=== PATIENT | female | born 1955 | race Asian ===

== ENCOUNTER 2018-01-10 12:32 | Emergency (ER) | payer OTHER ==
--- NOTE | 2018-01-10 15:03 | XRAY Report ---
EXAM: CHEST RADIOGRAPHY EXAM DATE: 01/10/2018 02:42 PM. CLINICAL HISTORY: Cough cp. COMPARISON: None. TECHNIQUE: 2 views. FINDINGS: Lungs/Pleura: No focal opacities evident. No pleural effusion. No pneumothorax. Normal volumes. Mediastinum: Heart and mediastinal contours are unremarkable. Other: None. IMPRESSION: No acute cardiopulmonary abnormality. [facility] Referring Provider Line: [phone] SITE ID: [id number]
[2018-01-10] MEDS ORDERED: SIMETHICONE CHEW 80 MG TABLET PO STA (15:52)
[2018-01-10] MEDS ORDERED: OXYMETAZOLINE NASAL SPRAY NAS STA (15:54)
--- NOTE | 2018-01-10 16:01 | ED Physician Documentation ---
History of Present Illness - Stated complaint Stated Complaint: COUGH/CONGESTION - Chief complaint Chief Complaint: Cardiac - Additonal information Additional information: hx from pt 62 female several days of cough congestion R ear plugged chills made moses soup for her and now she has a lot of belching, has small BM this Am had a flu shot Review of Systems Constitutional: reports: Chills, Myalgias. 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 - Present Medications Home Medications: Ambulatory Orders Medication Instructions Recorded Confirmed Acetaminophen [Tylenol] 650 mg PO Q6H PRN 02/20/16 05/19/16 Dextromethorphan Polistirex 01/10/18 [Delsym] - Allergies Allergies/Adverse Reactions: Allergies Allergy/AdvReac Type Severity Reaction Status Date / Time ibuprofen Allergy Intermediate Itching Verified 01/10/18 12:53 naproxen Allergy Intermediate Itching Verified 01/10/18 12:53 azithromycin Allergy Rash Verified 01/10/18 12:53 guaifenesin [From Robitussin] Allergy Anxiety Verified 01/10/18 12:53 Iodine and Iodide Containing Allergy Anaphylaxis Verified 01/10/18 12:53 Produc benzonatate [Benzonatate] AdvReac Intermediate tachycardia Verified 01/10/18 12: 53 oxycodone AdvReac Intermediate Rash Verified 01/10/18 12:53 tramadol AdvReac Intermediate Emesis Verified 01/10/18 12:53 aspirin AdvReac Unknown unknown Verified 01/10/18 12:53 eggs AdvReac Intermediate Emesis Uncoded 05/19/16 00:52 - Social History Does the pt smoke?: No Smoking Status: Never smoker Does the pt drink ETOH?: No Does the pt have substance abuse?: No - Immunizations Immunizations are current?: Yes Results - Vitals Vitals: Vital Signs - 24 hr 01/10/18 01/10/18 01/10/18 12:45 13:59 16:20 Temperature 37.9 C H 98 C H 37.5 C Heart Rate 101 H 99 102 H Respiratory 19 18 20 Rate Blood Pressure 156/79 H 164/102 H 191/97 H O2 Saturation 96 95 99 Oxygen O2 Source Room air - EKG (time done) 1258 Rate: Rate (enter#) (97) Rhythm: NSR [place]: Normal Ischemia: Non specific changes Compare to prior EKG: Unchanged from prior EKG (very siimilar to prior EKG - done per protocol form triage because she has chest discomfort with her cough - low concern for ACS) - Labs Labs: Laboratory Tests 01/10/18 01/10/18 15:30 15:30 Influenza A (Rapid) Negative Influenza B (Rapid) Negative Influenza Types A,B Ag - Group A Strep Rapid Negative - Rads (name of study) CXR Radiology: See rad report (per rad no acute) PD MEDICAL DECISION MAKING - ED course ED course: pt feeling better after meds in the ER Departure - Departure Disposition: 01 Home, Self Care Clinical Impression: Viral URI with cough Condition: Good Instructions: ED Viral Syndrome Follow-Up: Nato Gray MD [Primary Care Provider] - Comments: The xray did not show pneumonia The flu and strep swabs were nagtive The EKG was not normal but was similar to mprior EKGs I think this is a viral syndrome - that does not make you less ill but means antibiotics won't help I recommend you use afrin to decongest the painful right ear and continue the delsym as needed for the cough Tylenol as needed for pain and fever Follow up with your PMD if not better by the end of the week
[2018-01-10] MEDS ORDERED: ACETAMINOPHEN 325 MG TABLET PO STA (17:26)
[2018-01-10 17:28] VITALS: BP 189/92
== END 2018-01-10 17:35 | disposition home or self-care (01) ==
LOC: ED 12:32
DX: J06.9 Acute upper respiratory infection, unspecified (principal); B97.89 Other viral agents as the cause of diseases classified elsewhere; R05 Cough; H92.01 Otalgia, right ear; I10 Essential (primary) hypertension
CPT/HCPCS: 71046; 87070; 87275; 87276; 87430; 93005; 99283; 99284; A9270

== ENCOUNTER 2018-10-03 15:17 | Emergency (ER) | payer OTHER ==
--- NOTE | 2018-10-03 16:07 | ED Physician Documentation ---
PD HPI NVD - Stated complaint Stated Complaint: NECK PX, BACK PX, DIARRHEA - Chief complaint Chief Complaint: General - History obtained from History obtained from: Patient - History of Present Illness Timing - onset: How many days ago (3) Timing - duration: Days (3) Timing - details: Gradual onset (She has been having intermittent diarrhea with a abdominal pains and cramps over the past year and episodes. She had had a couple of weeks ago and seen by her provider with prescription for Reglan and Lomotil. She states she is been having still loose stools. She has been having increased cramping and diarrhea the last 2-3 days. She is having nausea with vomiting since yesterday. Her pain is mid to lower abdomen radiating into the back. She states when she saw her provider in the clinic she did not have any imaging nor stool studies.) Associated symptoms: Abdominal pain (crampy intermittent, mostly lower abd.). No: Fever, Near syncope / syncope, Loss of appetite, Weight loss Contributing factors: No: Sick contact, Bad food, Travel, Recent antibiotics Improved by: BM. No: Eating Worsened by: Eating Similar symptoms before: No diagnosis (symptoms intermittently for a year, more the past month.) Recently seen: Clinic (had labs and given Rx for Lomotil. Patient says no imaging nor stool studies.) Review of Systems Constitutional: reports: Fatigue. denies: Fever, Chills, Myalgias Nose: denies: Rhinorrhea / runny nose, Congestion Throat: denies: Sore throat Cardiac: denies: Chest pain / pressure Respiratory: denies: Cough GI: reports: Abdominal Pain, Nausea, Diarrhea. denies: Abdominal Swelling, Vomiting, Bloody / black stool : denies: Dysuria, Frequency Skin: denies: Rash, Lesions Musculoskeletal: reports: Back pain (lower). denies: Neck pain Neurologic: reports: Generalized weakness. 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 - Present Medications Home Medications: Ambulatory Orders Medication Instructions Recorded Confirmed Acetaminophen [Tylenol] 650 mg PO Q6H PRN 02/20/16 05/19/16 Dextromethorphan Polistirex 01/10/18 [Delsym] Hydrocodone/Acetaminophen [[place] 1 each PO Q6H PRN #15 tablet 10/03/18 5-325 Tablet] - Allergies Allergies/Adverse Reactions: Allergies Allergy/AdvReac Type Severity Reaction Status Date / Time ibuprofen Allergy Intermediate Itching Verified 01/10/18 12:53 naproxen Allergy Intermediate Itching Verified 01/10/18 12:53 azithromycin Allergy Rash Verified 01/10/18 12:53 guaifenesin [From Robitussin] Allergy Anxiety Verified 01/10/18 12:53 Iodine and Iodide Containing Allergy Anaphylaxis Verified 01/10/18 12:53 Produc benzonatate [Benzonatate] AdvReac Intermediate tachycardia Verified 01/10/18 12:53 oxycodone AdvReac Intermediate Rash Verified 01/10/18 12:53 tramadol AdvReac Intermediate Emesis Verified 01/10/18 12:53 aspirin AdvReac Unknown unknown Verified 01/10/18 12:53 eggs AdvReac Intermediate Emesis Uncoded 05/19/16 00:52 - Social History Does the pt smoke?: No Smoking Status: Never smoker Does the pt drink ETOH?: No Does the pt have substance abuse?: No - Family History Family history: reports: Non contributory - Immunizations Immunizations are current?: Yes PD ED PE NORMAL - Vitals Vital signs reviewed: Yes - General General: Alert and oriented X 3, No acute distress, Well developed/nourished - HEENT HEENT: Pharynx benign - Neck Neck: Supple, no meningeal sign, No adenopathy - Cardiac Cardiac: RRR, No murmur - Respiratory Respiratory: Clear bilaterally - Abdomen Abdomen: Normal bowel sounds, Soft, Non distended, No organomegaly, Other (some tender lower abd midline and to left. No guarding nor percussion tenderness. ) - Female Female : Deferred - Rectal Rectal: Deferred - Back Back: No CVA TTP - Derm Derm: Normal color, Warm and dry, No rash - Extremities Extremities: No tenderness to palpate, Normal ROM s pain, No edema, No calf tenderness / cord - Neuro Neuro: Alert and oriented X 3, No motor deficit, Normal speech Results - Vitals Vitals: Oxygen O2 Source Room air - Labs Labs: Laboratory Tests 10/03/18 10/03/18 10/03/18 16:36 16:36 16:56 WBC 9.7 RBC 4.98 Hgb 14.2 Hct 43.0 MCV 86.3 MCH 28.5 MCHC 33.0 RDW 13.8 Plt Count 376 MPV 7.3 L Neut # (Auto) 5.5 Lymph # (Auto) 3.0 [place] # (Auto) 0.8 Eos # (Auto) 0.4 Baso # (Auto) 0.1 Absolute Nucleated RBC 0.00 Nucleated RBC % 0.0 Sodium 137 Potassium 3.5 Chloride 103 Carbon Dioxide 26 Anion Gap 8.0 BUN 16 Creatinine 0.8 Estimated GFR (MDRD) 73 L Glucose 109 H Calcium 8.6 Magnesium 2.2 Total Bilirubin 0.6 AST 25 ALT 21 Alkaline Phosphatase 94 Total Protein 8.5 H Albumin 4.4 Globulin 4.1 Albumin/Globulin Ratio 1.1 Lipase 28 - Rads (name of study) abd/pelvic CT Radiology: Prelim report reviewed (no acute process seen. ) PD MEDICAL DECISION MAKING - ED course Complexity details: reviewed results, considered differential (recurrent/chronic diarrhea for a year with recent bout the past few days. ), d/w patient Departure - Departure Disposition: 01 Home, Self Care Clinical Impression: Abdominal pain Qualifiers: Abdominal location: lower abdomen, unspecified Qualified Code(s): R10.30 - Lower abdominal pain, unspecified Diarrhea Qualifiers: Diarrhea type: presumed infectious Qualified Code(s): R19.7 - Diarrhea, unspecified Condition: Stable Record reviewed to determine appropriate education?: Yes Follow-Up: KVNG BLAND DO [Primary Care Provider] - Prescriptions: Hydrocodone/Acetaminophen [[place] 5-325 Tablet] 1 each PO Q6H PRN #15 tablet PRN Reason: Pain Comments: Bring a sample of your diarrhea into your primary care's office or lab to have it studied for culture for possible infectious cause for the persistent diarrhea. We want to make sure there is not a specific treatment as needed. Otherwise continue your current medications. Add hydrocodone if needed for pains. Continue the diarrhea medicine as needed. Your blood tests and CT scan did not show any more serious causes at this time. I presume your pain and symptoms today were from under hydration and intestinal spasming. Discharge Date/Time: 10/03/18 19:30
[2018-10-03 16:43] LABS: BASOPHILS # (AUTO) 0.1 10^3/uL (0.0-0.1); BASOPHILS % (AUTO) 0.7 %; EOSINOPHILS # (AUTO) 0.4 10^3/uL (0.0-0.7); EOSINOPHILS % (AUTO) 3.8 %; HGB - HEMOGLOBIN 14.2 g/dL (12.0-16.0); LYMPHOCYTES % (AUTO) 31.1 %; MEAN CORPUSCULAR HEMOGLOBIN 28.5 pg (27.0-31.0); MEAN CORPUSCULAR VOLUME 86.3 fL (81.0-99.0); MEAN PLATELET VOLUME 7.3 fL (7.9-10.8); MONOCYTES # (AUTO) 0.8 10^3/uL (0.0-1.0); NEUTROPHILS # (AUTO) 5.5 10^3/uL (1.5-6.6); NEUTROPHILS % (AUTO) 56.4 %; PLT - PLATELET COUNT 376 10^3/uL (130-450); RED BLOOD COUNT 4.98 10^6/uL (4.20-5.40); RED CELL DISTRIBUTION WIDTH 13.8 % (12.0-15.0); WHITE BLOOD COUNT 9.7 x10^3/uL (4.8-10.8)
[2018-10-03] MEDS ORDERED: ONDANSETRON 4 MG/2 ML VIAL IVP STA (16:51)
[2018-10-03] MEDS ORDERED: SODIUM CHLORIDE 0.9% 1,000 ML IV ONE (16:51)
[2018-10-03 16:57] LABS: ALBUMIN 4.4 g/dL (3.2-5.5); ALBUMIN/GLOBULIN RATIO 1.1 (1.0-2.2); BILIRUBIN,TOTAL 0.6 mg/dL (0.2-1.0); CALCIUM 8.6 mg/dL (8.5-10.3); CREATININE 0.8 mg/dL (0.4-1.0); TOTAL PROTEIN 8.5 g/dL (6.7-8.2)
--- NOTE | 2018-10-03 18:01 | CT Report ---
Reason: lower abd pain and vomiting Procedure Date: 10/03/2018 Accession Number: [id number] / [id number] Procedure: CT - Abdomen/Pelvis W/O CPT Code: FULL RESULT: EXAM: CT ABDOMEN AND PELVIS EXAM DATE: 10/03/2018 05:25 PM. CLINICAL HISTORY: Lower abdominal pain and vomiting. COMPARISONS: ABDOMEN/PELVIS W/O 05/19/2016 1:43 AM. TECHNIQUE: Routine helical CT imaging was performed through the abdomen and pelvis. IV contrast: None. Enteric contrast: No. Reconstructions: Coronal and sagittal. In accordance with CT protocol optimization, one or more of the following dose reduction techniques were utilized for this exam: automated exposure control, adjustment of mA and/or KV based on patient size, or use of iterative reconstructive technique. FINDINGS: Lung Bases: Unremarkable. Liver: Normal. No masses. Gallbladder/Bile Ducts: Unremarkable. Spleen: Normal. Pancreas: Normal. Adrenal Glands: Normal. Kidneys: Normal. No stones, masses or hydronephrosis. Normal ureters. Peritoneal Cavity/Bowel: Diverticuli off the colon. No free fluid, free air or adenopathy. No masses or acute inflammatory process. The appendix is well visualized and normal. Pelvic Organs: Hysterectomy. The bladder and visualized pelvic organs are within normal limits. Vasculature: No aneurysms or other significant abnormality. Bones: Interval anterior and posterior fusion L4-L5. Other: None. IMPRESSION: 1. Colonic diverticulosis. 2. L4-L5 fusion. 3. No radiographic explanation for this lady's presenting symptoms. [facility]
[2018-10-03 19:21] VITALS: BP 143/75
== END 2018-10-03 19:30 | disposition home or self-care (01) ==
LOC: ED 15:17
DX: R10.30 Lower abdominal pain, unspecified (principal); R19.7 Diarrhea, unspecified; I10 Essential (primary) hypertension
CPT/HCPCS: 36415; 74176; 80053; 83690; 83735; 85025; 99283

== ENCOUNTER 2018-10-05 08:00 | Outpatient (CLI) | payer OTHER | END 2018-10-05 08:01 | LOC: LAB.R 08:00 | PROVIDERS: ATTEND Emergency Medicine | DX: R19.7 Diarrhea, unspecified (principal) | CPT/HCPCS: 87045; 87046; 87493 ==

== ENCOUNTER 2019-02-04 18:38 | Emergency (ER) | payer OTHER ==
[2019-02-04] MEDS ORDERED: ALBUTEROL NEB 2.5 MG/3 ML INH STA (19:29)
--- NOTE | 2019-02-04 19:32 | ED Physician Documentation ---
History of Present Illness - Stated complaint Stated Complaint: SOA/COUGH - Chief complaint Chief Complaint: Resp - History obtained from History obtained from: Patient, Family - History of Present Illness Timing: Other (She has been sick for 5 days with a nonproductive cough and wheezing. She had some upper respiratory symptoms that are gone. 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 02/04/19 - Allergies Allergies/Adverse Reactions: Allergies Allergy/AdvReac Type Severity Reaction Status Date / Time ibuprofen Allergy Intermediate Itching Verified 02/04/19 18:47 naproxen Allergy Intermediate Itching Verified 02/04/19 18:47 azithromycin Allergy Rash Verified 02/04/19 18:47 guaifenesin [From Robitussin] Allergy Anxiety Verified 02/04/19 18:47 Iodine and Iodide Containing Allergy Anaphylaxis Verified 02/04/19 18:47 Produc benzonatate [Benzonatate] AdvReac Intermediate tachycardia Verified 02/04/19 18:47 oxycodone AdvReac Intermediate Rash Verified 02/04/19 18:47 tramadol AdvReac Intermediate Emesis Verified 02/04/19 18:47 aspirin AdvReac Unknown unknown Verified 02/04/19 18:47 eggs AdvReac Intermediate Emesis Uncoded 05/19/16 00:52 - Social History Does the pt smoke?: No Smoking Status: Never smoker Does the pt drink ETOH?: No Does the pt have substance abuse?: No - Immunizations Immunizations are current?: Yes - POLST Patient has POLST: No PD ED PE NORMAL - Vitals Vital signs reviewed: Yes - General General: Alert and oriented X 3, No acute distress - HEENT HEENT: PERRL, EOMI, Ears normal, Moist mucous membranes, Pharynx benign - Neck Neck: Supple, no meningeal sign, No bony TTP - Cardiac Cardiac: RRR, No murmur - Respiratory Respiratory: Other (Wheezy throughout, nothing focal, frequent bronchitic cough.) - Abdomen Abdomen: Non tender - Extremities Extremities: Other (There is a bony lump on the dorsal proximal lateral foot that is nontender.) - Neuro Neuro: Alert and oriented X 3, Normal speech Results - Vitals Vitals: Vital Signs - 24 hr 02/04/19 02/04/19 18:45 19:30 Temperature 36.8 C Heart Rate 90 89 Respiratory 20 18 Rate Blood Pressure 148/99 H O2 Saturation 96 Oxygen O2 Source Room air - Labs Labs: Laboratory Tests 02/04/19 19:17 Influenza A (Rapid) Negative Influenza B (Rapid) Negative - Rads (name of study) 2v chest Radiology: EMP read contemporaneously (NAD) Departure - Departure Disposition: 01 Home, Self Care Clinical Impression: Bronchitis Condition: Good Record reviewed to determine appropriate education?: Yes Instructions: ED Bronchitis Asthmatic Prescriptions: Albuterol Sulf [Ventolin Hfa Inhaler] 1 - 2 puffs INH Q4HR PRN #1 inhaler PRN Reason: Shortness Of Air/Wheezing Diclofenac Sodium [Voltaren] 1 gm TP TID #1 gel..gram. Comments: Call your doctor to arrange a follow-up appointment, make the next available appointment. In the interim, return anytime if worse or if new symptoms develop.
--- NOTE | 2019-02-04 20:30 | XRAY Report ---
Reason: cough wheeze Procedure Date: 02/04/2019 Accession Number: [id number] / [id number] Procedure: XR - Chest 2 View X-Ray CPT Code: 64781 FULL RESULT: EXAM: CHEST RADIOGRAPHY EXAM DATE: 02/04/2019 08:19 PM. CLINICAL HISTORY: Cough wheeze. COMPARISON: CHEST 2 VIEW 01/10/2018 2:34 PM. TECHNIQUE: 2 views. FINDINGS: Lungs/Pleura: No change. No consolidation or focal pneumonia. Negative for pleural effusion and pneumothorax. Mediastinum: Heart size is normal. There is mild tortuosity of the aorta. Other: None. IMPRESSION: Negative for an acute cardiopulmonary abnormality [facility]
[2019-02-04 20:42] VITALS: BP 145/97
== END 2019-02-04 20:41 | disposition home or self-care (01) ==
LOC: ED 18:38
DX: J40 Bronchitis, not specified as acute or chronic (principal); R22.42 Localized swelling, mass and lump, left lower limb; I10 Essential (primary) hypertension
CPT/HCPCS: 71046; 87275; 87276; 94640; 99283

== ENCOUNTER 2019-05-25 04:41 | Emergency (ER) | payer OTHER ==
--- NOTE | 2019-05-25 04:47 | ED Physician Documentation ---
PD HPI DYSPNEA - Stated complaint Stated Complaint: DIFF BREATHING,COUGH - History obtained from History obtained from: Patient, Family - History of Present Illness Timing - onset: How many hours ago, How many days ago (3) Timing - duration: Months Timing - details: Gradual onset, Waxing and waning Pain level max: 0 Pain level now: 0 Improved by: Rest Worsened by: Exertion Associated symptoms: Cough, Wheezing. No: Fever, Hemoptysis, Chest pain / discomfort, Bilateral edema, Unilateral edema Similar symptoms before: Other (similar presentations to this ED several times over past few years) Recently seen: Other (most recent [facility] ED visit before tonight was 4 months ago for similar symptoms) - Additional information Additional information: c/o 3 days of cough, sore throat, sinus congestion, dyspnea, wheezing Review of Systems Constitutional: reports: Chills, Sweats. 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 - Present Medications Home Medications: Ambulatory Orders Medication Instructions Recorded Confirmed Acetaminophen [Tylenol] 650 mg PO Q6H PRN 02/20/16 05/19/16 Albuterol Sulf [Ventolin Hfa 1 - 2 puffs INH Q4HR PRN #1 inhaler 05/25/19 Inhaler] Amox/Clav 875/125 [Augmentin] 1 each PO Q12H #13 tablet 05/25/19 Loratadine 10 mg PO DAILY 05/25/19 05/25/19 Losartan [Cozaar] 100 mg PO DAILY 05/25/19 05/25/19 Metoclopramide [Reglan] 10 mg PO ACHS 05/25/19 05/25/19 predniSONE [Prednisone] 40 mg PO DAILY 3 Days #6 tablet 05/25/19 - Allergies Allergies/Adverse Reactions: Allergies Allergy/AdvReac Type Severity Reaction Status Date / Time ibuprofen Allergy Intermediate Itching Verified 05/25/19 04:48 naproxen Allergy Intermediate Itching Verified 05/25/19 04:48 azithromycin Allergy Rash Verified 05/25/19 04:48 guaifenesin [From Robitussin] Allergy Anxiety Verified 05/25/19 04:48 Iodine and Iodide Containing Allergy Anaphylaxis Verified 05/25/19 04:48 Produc benzonatate [Benzonatate] AdvReac Intermediate tachycardia Verified 05/25/19 04:48 oxycodone AdvReac Intermediate Rash Verified 05/25/19 04:48 tramadol AdvReac Intermediate Emesis Verified 05/25/19 04:48 aspirin AdvReac Unknown unknown Verified 05/25/19 04:48 eggs AdvReac Intermediate Emesis Uncoded 05/25/19 04:48 - Social History Does the pt smoke?: No Smoking Status: Never smoker Does the pt drink ETOH?: No Does the pt have substance abuse?: No - Immunizations Immunizations are current?: Yes - POLST Patient has POLST: No PD ED PE NORMAL - Vitals Vital signs reviewed: Yes - General General: Alert and oriented X 3, No acute distress, Well developed/nourished - HEENT HEENT: Moist mucous membranes - Neck Neck: Supple, no meningeal sign - Cardiac Cardiac: RRR, No murmur, No rub - Respiratory Respiratory: No respiratory distress - Abdomen Abdomen: Soft, Non tender - Extremities Extremities: No edema PD ED PE EXPANDED - Respiratory Respiratory: Wheezing (bilaterally, expiratory), Decreased breath sounds Results - Vitals Vitals: Vital Signs - 24 hr 05/25/19 05/25/19 05/25/19 04:43 05:00 05:24 Temperature 37.3 C Heart Rate 105 H 93 103 H Respiratory 26 H 26 H 24 Rate Blood Pressure 186/95 H O2 Saturation 96 96 05/25/19 05/25/19 05/25/19 05:36 06:29 08:25 Temperature Heart Rate 92 93 90 Respiratory 19 18 20 Rate Blood Pressure 152/72 H 129/65 124/66 O2 Saturation 98 100 93 Oxygen O2 Source Room air - Labs Labs: Laboratory Tests 05/25/19 05/25/19 05/25/19 05:40 05:40 05:40 WBC 13.9 H RBC 4.32 Hgb 12.2 Hct 38.7 MCV 89.6 MCH 28.2 MCHC 31.5 L RDW 12.9 Plt Count 340 MPV 9.0 Neut # (Auto) 9.9 H Lymph # (Auto) 2.5 [place] # (Auto) 1.0 Eos # (Auto) 0.4 Baso # (Auto) 0.1 Absolute Nucleated RBC 0.00 Nucleated RBC % 0.0 Sodium 142 Potassium 3.6 Chloride 109 Carbon Dioxide 21 Anion Gap 12.0 BUN 9 Creatinine 0.7 Estimated GFR (MDRD) 85 L Glucose 140 H Calcium 8.2 L Total Bilirubin 0.5 AST 27 ALT 23 Alkaline Phosphatase 71 Troponin I < 0.04 B-Natriuretic Peptide Total Protein 7.3 Albumin 3.7 Globulin 3.6 Albumin/Globulin Ratio 1.0 Lipase 31 05/25/19 05:40 WBC RBC Hgb Hct MCV MCH MCHC RDW Plt Count MPV Neut # (Auto) Lymph # (Auto) [place] # (Auto) Eos # (Auto) Baso # (Auto) Absolute Nucleated RBC Nucleated RBC % Sodium Potassium Chloride Carbon Dioxide Anion Gap BUN Creatinine Estimated GFR (MDRD) Glucose Calcium Total Bilirubin AST ALT Alkaline Phosphatase Troponin I B-Natriuretic Peptide 87 Total Protein Albumin Globulin Albumin/Globulin Ratio Lipase - Rads (name of study) chest xray Radiology: Prelim report reviewed, See rad report PD MEDICAL DECISION MAKING - ED course Complexity details: reviewed old records, reviewed results, considered differential, d/w patient, d/w family, d/w PMD Departure - Departure Disposition: 01 Home, Self Care Clinical Impression: Bronchitis with bronchospasm Condition: Good Health Concerns: cough, shortness of breath Plan of Treatment: antibiotic as prescribed. Inhaler as prescribed, as needed for difficulty breathing. steroid as prescribed. Care Goals: symptom improvement leading to resolution Assessment: see diagnosis Instructions: ED Bronchitis Asthmatic Follow-Up: KVNG BLAND DO [Primary Care Provider] - Prescriptions: Albuterol Sulf [Ventolin Hfa Inhaler] 1 - 2 puffs INH Q4HR PRN #1 inhaler PRN Reason: Shortness Of Air/Wheezing Amox/Clav 875/125 [Augmentin] 1 each PO Q12H #13 tablet predniSONE [Prednisone] 40 mg PO DAILY 3 Days #6 tablet Discharge Date/Time: 05/25/19 08:27
[2019-05-25] MEDS ORDERED: IPRATROPIUM/ALBUTEROL 3 ML NEB INH STA (04:55)
[2019-05-25] MEDS ORDERED: DEXAMETHASONE 10 MG/ML VIAL IVP STA (04:58)
[2019-05-25] MEDS ORDERED: DEXAMETHASONE 10 MG/ML VIAL PO STA (05:15)
[2019-05-25] MEDS ORDERED: CHERRY SYRUP 10 ML UDC PO ONE (05:15)
--- NOTE | 2019-05-25 05:36 | XRAY Report ---
Reason: dyspnea, cough, chest pain Procedure Date: 05/25/2019 Accession Number: [id number] / [id number] Procedure: XR - Chest 2 View X-Ray CPT Code: 08575 FULL RESULT: EXAM: CHEST RADIOGRAPHY EXAM DATE: 05/25/2019 05:22 AM. CLINICAL HISTORY: Dyspnea, cough, chest pain. COMPARISON: CHEST 2 VIEW 02/04/2019 8:09 PM. TECHNIQUE: 2 views. FINDINGS: Lungs/Pleura: No alveolar consolidation or pleural effusion seen. Bronchial wall thickening. No pneumothorax. Mediastinum: Heart and mediastinal contours are unremarkable. Other: None. IMPRESSION: 1. Bronchial wall thickening. This can be seen with bronchitis or reactive airways disease. [facility]
[2019-05-25 05:47] LABS: BASOPHILS # (AUTO) 0.1 10^3/uL (0.0-0.1); BASOPHILS % (AUTO) 0.4 %; EOSINOPHILS # (AUTO) 0.4 10^3/uL (0.0-0.7); EOSINOPHILS % (AUTO) 2.7 %; HGB - HEMOGLOBIN 12.2 g/dL (12.0-16.0); LYMPHOCYTES # (AUTO) 2.5 10^3/uL (1.5-3.5); LYMPHOCYTES % (AUTO) 17.9 %; MEAN CORPUSCULAR HEMOGLOBIN 28.2 pg (27.0-31.0); MEAN CORPUSCULAR HGB CONC 31.5 g/dL (32.0-36.0); MEAN CORPUSCULAR VOLUME 89.6 fL (81.0-99.0); MONOCYTES % (AUTO) 7.1 %; NEUTROPHILS # (AUTO) 9.9 10^3/uL (1.5-6.6); NEUTROPHILS % (AUTO) 71.2 %; PLT - PLATELET COUNT 340 10^3/uL (130-450); RED BLOOD COUNT 4.32 10^6/uL (4.20-5.40); RED CELL DISTRIBUTION WIDTH 12.9 % (12.0-15.0); WHITE BLOOD COUNT 13.9 x10^3/uL (4.8-10.8)
[2019-05-25 06:02] LABS: ALBUMIN 3.7 g/dL (3.2-5.5); BILIRUBIN,TOTAL 0.5 mg/dL (0.2-1.0); CALCIUM 8.2 mg/dL (8.5-10.3); CREATININE 0.7 mg/dL (0.4-1.0); TOTAL PROTEIN 7.3 g/dL (6.7-8.2)
[2019-05-25] MEDS ORDERED: LEVALBUTEROL 1.25 MG/3 ML NEB INH STA (06:16)
[2019-05-25] MEDS ORDERED: AMOX/CLAV 875 MG/125 MG TABLET PO STA (06:18)
[2019-05-25 09:00] VITALS: BP 124/66
== END 2019-05-25 08:27 | disposition home or self-care (01) ==
LOC: ED 04:41
DX: J40 Bronchitis, not specified as acute or chronic (principal); J98.01 Acute bronchospasm; I10 Essential (primary) hypertension
CPT/HCPCS: 36415; 71046; 80053; 83690; 83880; 84484; 85025; 93005; 94640; 99283; A9270

== ENCOUNTER 2021-10-31 07:32 | Outpatient (CLI) | payer MEDICARE, OTHER ==
--- NOTE | 2021-10-31 08:51 | XRAY Report ---
PROCEDURE: Foot 3 View RT INDICATIONS: PAIN IN RIGHT FOOT TECHNIQUE: 3 views of the foot were acquired. COMPARISON: None. FINDINGS: BONES: No acute, displaced fracture or dislocation. Mild narrowing of the first interphalangeal joint . Accessory navicular and cuboid are noted. SOFT TISSUES: No focal abnormality. IMPRESSION: 1.No acute osseous abnormality. If the patient's pain persists, consider repeat imaging in 7-10 days to evaluate for callus formation . Reviewed by: Mando Blackburn MD on 10/31/2021 8:50 AM PST Approved by: Mando Blackburn MD on 10/31/2021 8:50 AM [facility] Station ID: [id number]
== END 2021-10-31 07:33 | disposition home or self-care (01) ==
LOC: DI.N 07:32
PROVIDERS: ATTEND Physician Assistant
DX: M79.671 Pain in right foot (principal)

== ENCOUNTER 2022-04-01 09:32 | Outpatient (CLI) | payer MEDICARE, OTHER ==
--- NOTE | 2022-04-01 17:27 | DEXA Report ---
PROCEDURE: Dexa Spine and/or Hip INDICATIONS: POST MENOPAUSAL TECHNIQUE: Dual energy x-ray absorptiometry (DXA) was performed on a Furious System. Regions measur ed are the AP Spine, femoral neck, and if needed forearm. COMPARISON: None. FINDINGS: Lumbar Spine: Bone Mineral Density 1.238 g/cm/cm,T score 0.6 Left Hip: Bone Mineral Density 0.839 g/cm/cm,T score -1.3 Left Femoral Neck: Bone Mineral Density 0.768 g/cm/cm, T score -1.9 (T score greater or equal to -1.0: NORMAL) (T score from -1.1 to -2.4: OSTEOPENIA) (T score less than or equal to -2.5 to: OSTEOPOROSIS) Impression: Osteopenia of the left hip. Patients with diagnosis of osteoporosis or osteopenia should have regular bone mineral density assess ment. For those eligible for Medicare, routine testing is allowed once every 2 years. Testing frequ ency can be increased for patients who have rapidly progressing disease or for those who are receivin g medical therapy to restore bone mass. Reviewed by: Mendy De La Cruz MD on 04/01/2022 5:25 PM PDT Approved by: Mendy De La Cruz MD on 04/01/2022 5:25 PM PDT Station ID: [id number]
== END 2022-04-01 09:33 | disposition home or self-care (01) ==
LOC: DI 09:32
PROVIDERS: ATTEND Nurse Practitioner Family
DX: Z78.0 Asymptomatic menopausal state (principal); M85.89 Other specified disorders of bone density and structure, multiple sites

== ENCOUNTER 2022-04-09 07:06 | Outpatient (CLI) | payer MEDICARE, OTHER ==
[2022-04-09 12:04] LABS: BASOPHILS # (AUTO) 0.1 10^3/uL (0.0-0.1); BASOPHILS % (AUTO) 0.7 %; EOSINOPHILS # (AUTO) 0.3 10^3/uL (0.0-0.7); EOSINOPHILS % (AUTO) 3.8 %; HCT - HEMATOCRIT 41.8 % (37.0-47.0); LYMPHOCYTES # (AUTO) 2.9 10^3/uL (1.5-3.5); LYMPHOCYTES % (AUTO) 33.9 %; MEAN CORPUSCULAR HEMOGLOBIN 27.8 pg (27.0-31.0); MEAN CORPUSCULAR HGB CONC 31.1 g/dL (32.0-36.0); MEAN CORPUSCULAR VOLUME 89.3 fL (81.0-99.0); MEAN PLATELET VOLUME 10.2 fL (7.9-10.8); MONOCYTES # (AUTO) 0.7 10^3/uL (0.0-1.0); MONOCYTES % (AUTO) 8.1 %; NEUTROPHILS # (AUTO) 4.6 10^3/uL (1.5-6.6); PLT - PLATELET COUNT 364 10^3/uL (130-450); RED BLOOD COUNT 4.68 10^6/uL (4.20-5.40); RED CELL DISTRIBUTION WIDTH 13.3 % (12.0-15.0); WHITE BLOOD COUNT 8.7 x10^3/uL (4.8-10.8)
[2022-04-09 12:17] LABS: ALBUMIN 3.9 g/dL (3.2-5.5); ALKALINE PHOSPHATASE 69 IU/L (42-121); ALT ALANINE AMINOTRANSFERASE 16 IU/L (10-60); AST ASPARTATE AMINOTRANSFERASE 19 IU/L (10-42); BILIRUBIN,TOTAL 0.9 mg/dL (0.2-1.0); BUN - BLOOD UREA NITROGEN 16 mg/dL (6-20); CALCIUM 8.5 mg/dL (8.5-10.3); CARBON DIOXIDE - CO2 24 mmol/L (21-32); CHLORIDE 104 mmol/L (101-111); CREATININE 0.7 mg/dL (0.4-1.0); GFR - MDRD 84 (>89); GLUCOSE 112 mg/dL (70-100); POTASSIUM 3.6 mmol/L (3.5-5.0); SODIUM 139 mmol/L (135-145); TOTAL PROTEIN 7.6 g/dL (6.7-8.2)
[2022-04-09 12:18] LABS: ALBUMIN/GLOBULIN RATIO 1.1 (1.0-2.2); CHOL/HDL RATIO 3.8 (<4.4); CHOLESTEROL 204 mg/dL; HDL CHOLESTEROL 53 mg/dL; LDL CHOLESTEROL,CALCULATED 113 mg/dL; LDL/HDL RATIO 2.1 (<4.4); TRIGLYCERIDES 192 mg/dL; VLDL CHOLESTEROL 38 mg/dL
[2022-04-09 12:29] LABS: THYROID STIMULATING HORMONE 5.18 uIU/mL (0.34-5.60)
[2022-04-09 13:10] LABS: ESTIMATED AVERAGE GLUCOSE 128 mg/dL (70-100); HEMOGLOBIN A1c% 6.1 % (4.27-6.07)
== END 2022-04-09 07:07 | disposition home or self-care (01) ==
LOC: LAB.N 07:06
PROVIDERS: ATTEND Nurse Practitioner Family
DX: I10 Essential (primary) hypertension (principal); Z13.220 Encounter for screening for lipoid disorders; E55.9 Vitamin D deficiency, unspecified; Z13.1 Encounter for screening for diabetes mellitus
CPT/HCPCS: 36415; 80053; 80061; 82306; 83036; 83721; 84443; 85025

== ENCOUNTER 2023-03-03 07:06 | Outpatient (CLI) | payer MEDICARE, OTHER ==
[2023-03-03 11:54] LABS: BASOPHILS # (AUTO) 0.1 10^3/uL (0.0-0.1); BASOPHILS % (AUTO) 0.9 %; EOSINOPHILS # (AUTO) 0.4 10^3/uL (0.0-0.7); EOSINOPHILS % (AUTO) 4.5 %; HCT - HEMATOCRIT 39.3 % (37.0-47.0); HGB - HEMOGLOBIN 12.3 g/dL (12.0-16.0); LYMPHOCYTES # (AUTO) 2.9 10^3/uL (1.5-3.5); LYMPHOCYTES % (AUTO) 32.8 %; MEAN CORPUSCULAR HEMOGLOBIN 28.2 pg (27.0-31.0); MEAN CORPUSCULAR HGB CONC 31.3 g/dL (32.0-36.0); MEAN CORPUSCULAR VOLUME 90.1 fL (81.0-99.0); MEAN PLATELET VOLUME 9.9 fL (7.9-10.8); MONOCYTES # (AUTO) 0.6 10^3/uL (0.0-1.0); MONOCYTES % (AUTO) 7.3 %; NEUTROPHILS # (AUTO) 4.7 10^3/uL (1.5-6.6); NEUTROPHILS % (AUTO) 54.3 %; PLT - PLATELET COUNT 362 10^3/uL (130-450); RED BLOOD COUNT 4.36 10^6/uL (4.20-5.40); RED CELL DISTRIBUTION WIDTH 13.6 % (12.0-15.0); WHITE BLOOD COUNT 8.7 x10^3/uL (4.8-10.8)
[2023-03-03 11:57] LABS: ALBUMIN 3.7 g/dL (3.2-5.5); ALBUMIN/GLOBULIN RATIO 1.1 (1.0-2.2); ALKALINE PHOSPHATASE 66 IU/L (42-121); ALT ALANINE AMINOTRANSFERASE 18 IU/L (10-60); AST ASPARTATE AMINOTRANSFERASE 21 IU/L (10-42); BILIRUBIN,TOTAL 0.6 mg/dL (0.2-1.0); BUN - BLOOD UREA NITROGEN 20 mg/dL (6-20); CALCIUM 8.2 mg/dL (8.5-10.3); CARBON DIOXIDE - CO2 25 mmol/L (21-32); CHLORIDE 108 mmol/L (101-111); CHOLESTEROL 203 mg/dL; CREATININE 0.7 mg/dL (0.4-1.0); GFR - MDRD 84 (>89); GLUCOSE 116 mg/dL (70-100); HDL CHOLESTEROL 68 mg/dL; LDL CHOLESTEROL,CALCULATED 118 mg/dL; LDL/HDL RATIO 1.7 (<4.4); POTASSIUM 3.8 mmol/L (3.5-5.0); SODIUM 139 mmol/L (135-145); TOTAL PROTEIN 7.2 g/dL (6.7-8.2); TRIGLYCERIDES 85 mg/dL; VLDL CHOLESTEROL 17 mg/dL
[2023-03-03 12:20] LABS: THYROID STIMULATING HORMONE 3.96 uIU/mL (0.34-5.60)
[2023-03-03 12:31] LABS: ESTIMATED AVERAGE GLUCOSE 128 mg/dL (70-100); HEMOGLOBIN A1c% 6.1 % (4.27-6.07)
== END 2023-03-03 07:07 | disposition home or self-care (01) ==
LOC: LAB.N 07:06
PROVIDERS: ATTEND Nurse Practitioner Family
DX: G93.9 Disorder of brain, unspecified (principal); R73.03 Prediabetes; Z13.220 Encounter for screening for lipoid disorders; E66.9 Obesity, unspecified; I10 Essential (primary) hypertension; E55.9 Vitamin D deficiency, unspecified
CPT/HCPCS: 36415; 80053; 80061; 82306; 83036; 83721; 84443; 85025

== ENCOUNTER 2023-03-13 10:25 | Outpatient (CLI) | payer MEDICARE, OTHER ==
--- NOTE | 2023-03-13 12:00 | XRAY Report ---
PROCEDURE: Chest 2 View X-Ray INDICATIONS: ACUTE COUGH/RALES/WHEEZING TECHNIQUE: 2 views of the chest were acquired. COMPARISON: None. FINDINGS: Surgical changes and devices: None. Lungs and pleura: No pleural effusions or pneumothorax. Lungs are clear. Mediastinum: Mediastinal contours appear normal. Heart size is normal. Bones and chest wall: No suspicious bony lesions. Overlying soft tissues appear unremarkable. IMPRESSION: Normal two-view chest x-ray Reviewed by: Colten Mercado MD on 03/13/2023 10:59 AM NIKO Approved by: Colten Mercado MD on 03/13/2023 10:59 AM AKBILLY Station ID: [id number]
== END 2023-03-13 10:26 | disposition home or self-care (01) ==
LOC: DI 10:25
PROVIDERS: ATTEND Nurse Practitioner Family
DX: R05.1 Acute cough (principal); R09.89 Other specified symptoms and signs involving the circulatory and respiratory systems; R06.2 Wheezing

== ENCOUNTER 2023-07-07 08:20 | Outpatient (CLI) | payer MEDICARE, OTHER ==
[2023-07-07 13:16] LABS: ALBUMIN 3.8 g/dL (3.2-5.5); ALBUMIN/GLOBULIN RATIO 1.1 (1.0-2.2); BILIRUBIN,TOTAL 0.6 mg/dL (0.2-1.0); CALCIUM 8.6 mg/dL (8.5-10.3); CREATININE 0.7 mg/dL (0.4-1.0); POTASSIUM 3.6 mmol/L (3.5-5.0); TOTAL PROTEIN 7.4 g/dL (6.7-8.2)
[2023-07-07 20:29] LABS: ESTIMATED AVERAGE GLUCOSE 131 mg/dL (70-100); HEMOGLOBIN A1c% 6.2 % (4.27-6.07)
== END 2023-07-07 08:21 | disposition home or self-care (01) ==
LOC: LAB.N 08:20
PROVIDERS: ATTEND Nurse Practitioner Family
DX: R73.03 Prediabetes (principal); E66.9 Obesity, unspecified
CPT/HCPCS: 36415; 80053; 83036

== ENCOUNTER 2024-02-21 10:20 | Outpatient (CLI) | payer MEDICARE, OTHER ==
[2024-02-21 12:14] LABS: BASOPHILS # (AUTO) 0.1 10^3/uL (0.0-0.1); BASOPHILS % (AUTO) 0.7 %; EOSINOPHILS # (AUTO) 0.3 10^3/uL (0.0-0.7); EOSINOPHILS % (AUTO) 3.3 %; HGB - HEMOGLOBIN 12.9 g/dL (12.0-16.0); LYMPHOCYTES # (AUTO) 2.6 10^3/uL (1.5-3.5); LYMPHOCYTES % (AUTO) 26.3 %; MEAN CORPUSCULAR HEMOGLOBIN 27.1 pg (27.0-31.0); MEAN CORPUSCULAR VOLUME 90.3 fL (81.0-99.0); MEAN PLATELET VOLUME 9.5 fL (7.9-10.8); MONOCYTES # (AUTO) 0.8 10^3/uL (0.0-1.0); MONOCYTES % (AUTO) 7.6 %; NEUTROPHILS # (AUTO) 6.1 10^3/uL (1.5-6.6); NEUTROPHILS % (AUTO) 61.7 %; PLT - PLATELET COUNT 418 10^3/uL (130-450); RED BLOOD COUNT 4.76 10^6/uL (4.20-5.40); RED CELL DISTRIBUTION WIDTH 13.2 % (12.0-15.0); WHITE BLOOD COUNT 9.9 x10^3/uL (4.8-10.8)
[2024-02-21 12:32] LABS: BUN - BLOOD UREA NITROGEN 14 mg/dL (6-20); CALCIUM 8.9 mg/dL (8.5-10.3); CARBON DIOXIDE - CO2 25 mmol/L (21-32); CHLORIDE 106 mmol/L (101-111); CHOL/HDL RATIO 3.5 (<4.4); CHOLESTEROL 197 mg/dL; CREATININE 0.7 mg/dL (0.6-1.3); GFR - MDRD 83 (>89); GLUCOSE 111 mg/dL (74-104); HDL CHOLESTEROL 56 mg/dL; LDL CHOLESTEROL,CALCULATED 105 mg/dL; LDL/HDL RATIO 1.9 (<4.4); POTASSIUM 3.5 mmol/L (3.5-4.5); SODIUM 139 mmol/L (135-145); TRIGLYCERIDES 178 mg/dL (48-352); VLDL CHOLESTEROL 36 mg/dL
[2024-02-21 12:40] LABS: ESTIMATED AVERAGE GLUCOSE 128 mg/dL (70-100); HEMOGLOBIN A1c% 6.1 % (4.27-6.07)
== END 2024-02-21 10:21 | disposition home or self-care (01) ==
LOC: LAB.N 10:20
PROVIDERS: ATTEND Nurse Practitioner Family
DX: I10 Essential (primary) hypertension (principal); E66.9 Obesity, unspecified; R73.03 Prediabetes
CPT/HCPCS: 36415; 80048; 80061; 83036; 83721; 85025

== ENCOUNTER 2024-02-29 13:29 | Outpatient (CLI) | payer MEDICARE, OTHER ==
[2024-02-29 17:35] LABS: BASOPHILS # (AUTO) 0.1 10^3/uL (0.0-0.1); BASOPHILS % (AUTO) 0.5 %; EOSINOPHILS # (AUTO) 0.3 10^3/uL (0.0-0.7); EOSINOPHILS % (AUTO) 2.2 %; HCT - HEMATOCRIT 44.6 % (37.0-47.0); HGB - HEMOGLOBIN 13.2 g/dL (12.0-16.0); LYMPHOCYTES # (AUTO) 2.8 10^3/uL (1.5-3.5); LYMPHOCYTES % (AUTO) 22.2 %; MEAN CORPUSCULAR HEMOGLOBIN 26.9 pg (27.0-31.0); MEAN CORPUSCULAR HGB CONC 29.6 g/dL (32.0-36.0); MEAN CORPUSCULAR VOLUME 90.8 fL (81.0-99.0); MEAN PLATELET VOLUME 9.7 fL (7.9-10.8); MONOCYTES # (AUTO) 0.9 10^3/uL (0.0-1.0); MONOCYTES % (AUTO) 7.4 %; NEUTROPHILS # (AUTO) 8.4 10^3/uL (1.5-6.6); NEUTROPHILS % (AUTO) 67.2 %; PLT - PLATELET COUNT 422 10^3/uL (130-450); RED BLOOD COUNT 4.91 10^6/uL (4.20-5.40); RED CELL DISTRIBUTION WIDTH 13.4 % (12.0-15.0); WHITE BLOOD COUNT 12.5 x10^3/uL (4.8-10.8)
== END 2024-02-29 13:30 | disposition home or self-care (01) ==
LOC: LAB.N 13:29
PROVIDERS: ATTEND Nurse Practitioner Family
DX: D72.829 Elevated white blood cell count, unspecified (principal)
CPT/HCPCS: 36415; 85025

== ENCOUNTER 2024-03-10 12:38 | Outpatient (CLI) | payer MEDICARE, OTHER ==
--- NOTE | 2024-03-10 17:14 | Ultrasound Report ---
PROCEDURE: Soft Tissue Head or Neck INDICATIONS: DYSPHAGIA, THYROID NODULE TECHNIQUE: Real-time scanning was performed of the thyroid gland, with image documentation. COMPARISON: None FINDINGS: Right: Thyroid lobe measures 4.9 x 1.4 x 1.4 cm, and is homogeneous in echotexture. Left: Thyroid lobe measures 4.3 x 2.7 x 2.0 cm, and is homogenous in echotexture. Isthmus: 0.5 cm thick. Nodule number: One Location: Left side of isthmus Size: 2.2 x 2.3 x 1.4 cm. Composition: Predominantly solid. Echogenicity: Hypoechoic. Shape: wider than tall (0 points). Margins: Smooth (0 points). Echogenic foci: None (0 points). Total points: 4 ACR TI-RADS category: TI-RADS 4: Moderately suspicious. Nodule number: Two Location: Mid to lower pole right thyroid lobe Size: 1.4 x 1.2 x 1.2 with internal hyperechoic mural wall lesion measures 1 x 0.9 x 0.9 cm. Composition: Mixed solid and cystic. Echogenicity: Anechoic and hyperechoic. Shape: wider than tall (0 points). Margins: Smooth (0 points). Echogenic foci: None (0 points). Total points: 3 ACR TI-RADS category: TI-RADS 3: Mildly suspicious. Nodule number: Three Location: Mid to lower pole left thyroid lobe Size: 2 x 2.4 x 2.2 cm. Composition: Cystic / almost completely cystic (0 points). Echogenicity: Anechoic (0 points). Shape: wider than tall (0 points). Margins: Smooth (0 points). Echogenic foci: None (0 points). Total points: 0 ACR TI-RADS category: TI-RADS 1: Benign. IMPRESSION: 1. Moderately suspicious nodule in left side of isthmus, suggest fine-needle aspiration of this nodul e for further evaluation. 2. Mixed solid and cystic nodule seen in lower pole right thyroid lobe which is mildly suspicious. Be nign-appearing cystic nodule in lower pole left thyroid lobe. Ultrasound follow-up is recommended. ACR TI-RADS definitions and recommendations: TI-RADS 1 (benign): 0 points. FNA not needed. TI-RADS 2 (not suspicious): 2 points. FNA not needed. TI-RADS 3 (mildly suspicious): 3 points. "FNA if 2.5 cm or larger, follow up if 1.5 cm or larger (at 1, 3, and 5 years). TI-RADS 4 (moderately suspicious): 4-6 points. "FNA if 1.5 cm or larger, follow up if 1 cm or larger (at 1, 2, 3, and 5 years). TI-RADS 5 (highly suspicious): 7 points or more. "FNA if 1 cm or larger, follow up if 0.5 cm or larger (every year for 5 years). Reviewed by: Karri Tirado MD on 03/10/2024 5:12 PM PDT Approved by: Karri Tirado MD on 03/10/2024 5:12 PM PDT Station ID: [id number]
== END 2024-03-10 12:39 | disposition home or self-care (01) ==
LOC: DI 12:38
PROVIDERS: ATTEND Nurse Practitioner Family
DX: R13.10 Dysphagia, unspecified (principal); E04.2 Nontoxic multinodular goiter

== ENCOUNTER 2024-04-03 09:44 | Outpatient (CLI) | payer MEDICARE, OTHER ==
[~2024-04-03 09:44] MED LIST: LIDOCAINE-MPF 1% 5 ML VIAL ONE
[2024-04-03] MEDS: LIDOCAINE-MPF 1% 5 ML VIAL TD ONE (12:22)
--- NOTE | 2024-04-03 17:17 | Ultrasound Report ---
PROCEDURE: FNA Bx w/US Gdn 1st Les INDICATIONS: THYROID NODULE TECHNIQUE: The indications, alternatives, benefits, risks, and complications of the procedure were explained to the patient. Written informed consent was obtained and placed in the chart. The area of interest wa s examined sonographically and a site was chosen for ultrasound guided percutaneous sampling. The sk in was prepared and draped in the usual fashion, and anesthetized with 1% lidocaine infiltrated from the skin down to the lesion. Multiple passes were then performed, with contents emptied into an appr [facility] pathology specimen container. A bandage was applied to the area of access at completion of t he study. COMPARISON: None. FINDINGS: Location(s) of lesion(s) sampled: Left isthmus nodule [place]: 25 gauge hypodermic needles. Number of passes: 6 Medications: 1% lidocaine for local anaesthesia. Complications: None. IMPRESSION: Successful ultrasound-guided left isthmus nodule fine needle aspiration, with cytology results xiomara lynch Reviewed by: Karri Tirado MD on 04/03/2024 5:16 PM PDT Approved by: Karri Tirado MD on 04/03/2024 5:16 PM PDT Station ID: [id number]
== END 2024-04-03 09:45 | disposition home or self-care (01) ==
LOC: DI 09:44
PROVIDERS: ATTEND Nurse Practitioner Family
DX: E04.2 Nontoxic multinodular goiter (principal)
CPT/HCPCS: 10005

== ENCOUNTER 2024-04-07 12:37 | Outpatient (CLI) | payer MEDICARE, OTHER ==
[2024-04-07] MEDS ORDERED: GADOTERATE MEGLUMINE 10 MMOL/20 ML VIAL ONE (13:22)
[2024-04-13] MEDS ORDERED: GADOTERATE MEGLUMINE 10 MMOL/20 ML VIAL IVP ONE (11:28)
[2024-04-13] MEDS: GADOTERATE MEGLUMINE 10 MMOL/20 ML VIAL IVP ONE (11:33)
--- NOTE | 2024-04-13 19:14 | MRI Report ---
PROCEDURE: Brain W/WO INDICATIONS: MENINGIOMA CONTRAST: CLARISCAN 18.3 ML TECHNIQUE: Noncontrast axial T1 spin echo, axial T2 fast spin echo, sagittal and axial FLAIR, coronal T2 fast sp in echo, axial gradient echo, axial diffusion and ADC through the brain. After the administration of contrast, axial and coronal T1 spin echo with fat saturation through the brain. COMPARISON: 09/07/2015 FINDINGS: Image quality: Excellent. CSF spaces: Basal cisterns are patent. No extra-axial fluid collections. Ventricles are normal in size and shape. Brain: Similar appearance of dural-based soft tissue mass overlying the right frontal lobe measuring approximately 1.3 x 1.0 x 1.1 cm, previously 1.2 x 1.0 x 1.1 cm. No midline shift. No intracranial bleeds. There is cerebral volume loss for age. There is periventricular white matter chronic small vessel ischemic change. The brainstem appears normal. Diffusion-weighted images demonstrate no acut e ischemic insults. No chronic ischemic insults. Normal intravascular flow voids are present. Skull and face: Calvarial marrow is normal in signal. Bilateral lens replacements. The orbits are o therwise normal in appearance. Sinuses: Sinuses and mastoids appear clear. IMPRESSION: 1.Similar appearance of right frontal meningioma. 2.Mild age-related cortical volume loss and chronic microvascular ischemic changes. 3.No acute intracranial abnormalities. Reviewed by: Adin Niño MD on 04/13/2024 6:13 PM NIKO Approved by: Adin Niño MD on 04/13/2024 6:13 PM NIKO Station ID: [id number]
== END 2024-04-07 12:38 | disposition home or self-care (01) ==
LOC: DI 12:37
PROVIDERS: ATTEND Nurse Practitioner Family
DX: D32.0 Benign neoplasm of cerebral meninges (principal); G31.89 Other specified degenerative diseases of nervous system; I67.82 Cerebral ischemia
CPT/HCPCS: 36415; 82565

== ENCOUNTER 2024-05-31 18:45 | Emergency (ER) | payer MEDICARE, OTHER ==
--- NOTE | 2024-05-31 19:39 | XRAY Report ---
PROCEDURE: Foot 3+V RT INDICATIONS: Trauma TECHNIQUE: 3 views of the foot were acquired. COMPARISON: 10/31/2021 FINDINGS: Bones: No acute displaced fracture or dislocation. Calcaneal enthesopathy. Soft tissues: No suspicious calcifications. IMPRESSION: No acute radiographic abnormality. If there is high concern for occult injury, consider repeat radiog misty or cross-sectional imaging. Reviewed by: Mike Murray MD on 05/31/2024 7:38 PM PDT Approved by: Mike Murray MD on 05/31/2024 7:38 PM PDT Station ID: [id number]
--- NOTE | 2024-05-31 21:11 | ED Physician Documentation ---
PD HPI LOWER EXT INJURY - Stated complaint Stated Complaint: RT FOOT SWOLLEN - Chief complaint Chief Complaint: Ext Problem - Additional information Additional information: 68 yo female hx of asthma and hypertension right foot pain started about three days ago. It started after pt ate cream of mushroom and says he has a hx of gout and cream of mushroom causes gout for him. NO recent falls, trauma, fevers, chills, and denies this ever happening before. Pain and swelling to right foot has gotten worse over the last three days pain worse at night. Tylenol has helps a small amount with taking the edge off. 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: Hysterectomy - Present Medications Home Medications: Ambulatory Orders Medication Instructions Recorded Confirmed Acetaminophen [Tylenol] 650 mg PO Q8HR PRN 08/16/23 08/16/23 Albuterol Sulfate [Proair 1 puffs IN DAILY 08/16/23 08/16/23 Digihaler] Clobetasol 0.05% Oint [Temovate 1 applic TOP BID 08/16/23 08/16/23 0.05% Oint] Diphenoxylate/Atropine [Lomotil] 1 tab PO QID PRN 08/16/23 08/16/23 Fluticasone Propion/Salmeterol 2 puffs IN BID 08/16/23 08/16/23 [Fluticasone-Salmeterol 230-21] Fluticasone [Flonase] 1 spray IN BID 08/16/23 08/16/23 Ketoconazole 2% Cream [Nizoral 2% 1 applic TOP DAILY 08/16/23 08/16/23 Cream] Loratadine [Claritin] 10 mg PO DAILY 08/16/23 08/16/23 Tolterodine Tartrate [Tolterodine 2 mg PO DAILY 08/16/23 08/16/23 Tartrate ER] cloNIDine [Catapres] 0.1 mg PO DAILY PM 08/16/23 08/16/23 oxyBUTYnin chloride [Oxybutynin 10 mg PO DAILY 08/16/23 08/16/23 Chloride ER] Indomethacin [Indocin] 50 mg PO TID #20 cap 05/31/24 - Allergies Allergies/Adverse Reactions: Allergies Allergy/AdvReac Type Severity Reaction Status Date / Time ibuprofen Allergy Intermediate Itching Verified 05/31/24 18:53 naproxen Allergy Intermediate Itching Verified 05/31/24 18:53 azithromycin Allergy Rash Verified 05/31/24 18:53 guaifenesin [From Robitussin] Allergy Anxiety Verified 05/31/24 18:53 Iodine and Iodide Containing Allergy Anaphylaxis Verified 05/31/24 18:53 Produc benzonatate [Benzonatate] AdvReac Intermediate tachycardia Verified 05/31/24 18:53 oxycodone AdvReac Intermediate Rash Verified 05/31/24 18:53 tramadol AdvReac Intermediate Emesis Verified 05/31/24 18:53 aspirin AdvReac Unknown unknown Verified 05/31/24 18:53 eggs AdvReac Intermediate Emesis Uncoded 05/31/24 18:53 - Social History Does the pt smoke?: No Smoking Status: Never smoker Does the pt drink ETOH?: No Does the pt have substance abuse?: No - Immunizations Immunizations are current?: Yes - POLST Patient has POLST: No PD ED PE NORMAL - Vitals Vital signs reviewed: Yes - General General: Alert and oriented X 3, Well developed/nourished - Derm Derm: Normal color, Warm and dry, No rash, Other (no erythema) - Extremities Extremities: Other (Right lower extremity: No tenderness to the right knee, right foot is entirely swollen significant tenderness with any palpation CMS intact, strong dorsalis pedis pulse, no erythema no ecchymosis tenderness with flexion extension of the ankle tenderness with flexion of all 5 toes.) Results - Vitals Vitals: Vital Signs - 24 hr 05/31/24 21:55 Heart Rate 85 Respiratory 18 Rate Blood Pressure 142/70 H O2 Saturation 96 Oxygen O2 Source Room air - Labs Labs: Laboratory Tests 05/31/24 05/31/24 21:31 21:31 WBC 11.3 H RBC 4.49 Hgb 12.7 Hct 40.1 MCV 89.3 MCH 28.3 MCHC 31.7 L RDW 13.3 Plt Count 384 MPV 9.3 Neut # (Auto) 6.4 Lymph # (Auto) 3.5 [place] # (Auto) 0.9 Eos # (Auto) 0.4 Baso # (Auto) 0.1 Absolute Nucleated RBC 0.00 Nucleated RBC % 0.0 Sodium 139 Potassium 3.5 Chloride 106 Carbon Dioxide 25 Anion Gap 8.0 BUN 11 Creatinine 0.6 Estimated GFR (MDRD) 100 Glucose 115 H Uric Acid 4.0 Calcium 9.1 Magnesium 1.8 Total Bilirubin 0.4 AST 19 ALT 19 Alkaline Phosphatase 81 Total Protein 7.8 Albumin 4.4 Globulin 3.4 Albumin/Globulin Ratio 1.3 Lipase 23 - Rads (name of study) Venous duplex of right lower extremity Relevant Findings:: Final report received, EMP independent interpretation of test, Other (No DVT of the right lower extremity) Right foot x-rays Relevant Findings:: Final report received, EMP independent interpretation of test, Other (No acute bony abnormalities or findings) PD Medical Decision Making - ED course ED course: 68-year-old female presents emergency department for left foot pain differentials included but not limited to cellulitis, fracture, sprain/strain, DVT Given that patient has had no trauma to the foot unlikely that there is any sort of strain/sprain. X-rays completed of her right foot no bony abnormalities or findings. Venous duplex also completed of right lower extremity and found to be negative. Labs are complete for further evaluation she has very mild leukocytosis 11.3 normal CMP. Uric acid is within normal limits although I do have a high suspicion that patient is experiencing a gout flare. Given that she has pain on proportion no erythema it is not hot to the touch I am not concerned about possible septic arthritis. She has never had history of surgery to this foot or other traumas. She was given a one-time dose of 1.2 mg colchicine here in the emergency department and prescription of indomethacin was sent to her preferred pharmacy. She is told to follow-up with her primary care provider soon as possible and given a diet to adhere to for gout flares. All questions answered very strict return precautions given safer discharge at this time. Departure - Departure Disposition: 01 Home, Self Care Clinical Impression: Gout attack Instructions: Gout Attack Tx, Gout Eat Prevent Prescriptions: Indomethacin [Indocin] 50 mg PO TID #20 cap Comments: Thank you for trusting us with your care, keep your phone on you and the ringer on loud just in case you have a severe lab abnormality that you may need to come back in for. We have given you Colchicine 1.2mg here in the ER and I have sent a prescription of indomethacin to the [facility]. Please follow up with your PCP as soon as possible and come back if your having any worsening symptoms, fevers, chills, or worsening pain. Wishing you a speedy recovery. Forms: PCP List Discharge Date/Time: 05/31/24 21:55
--- NOTE | 2024-05-31 21:25 | Ultrasound Report ---
PROCEDURE: Duplex Ext Veins Right INDICATIONS: atraumatic RLE swelling TECHNIQUE: Real-time imaging, as well as color and pulse Doppler interrogation, were performed of the lower extr emity deep veins from the inguinal ligament to the popliteal fossa. Attempted visualization of the ca lf veins was performed. COMPARISON: None. FINDINGS: The deep veins are normally compressible, and free of intraluminal thrombus. The calf vein s are not well visualized. Color and pulse Doppler demonstrate normal phasic intraluminal flow. The re is normal augmentation response to distal compression maneuver. IMPRESSION: No deep venous thrombosis of the visualized lower extremity. The calf veins are not well visualized. Reviewed by: Emi Burgess MD, PhD on 05/31/2024 9:24 PM PDT Approved by: Emi Burgess MD, PhD on 05/31/2024 9:24 PM PDT Station ID: [id number]
[2024-05-31 21:36] LABS: BASOPHILS # (AUTO) 0.1 10^3/uL (0.0-0.1); BASOPHILS % (AUTO) 0.7 %; EOSINOPHILS # (AUTO) 0.4 10^3/uL (0.0-0.7); EOSINOPHILS % (AUTO) 3.1 %; HCT - HEMATOCRIT 40.1 % (37.0-47.0); HGB - HEMOGLOBIN 12.7 g/dL (12.0-16.0); LYMPHOCYTES # (AUTO) 3.5 10^3/uL (1.5-3.5); LYMPHOCYTES % (AUTO) 31.1 %; MEAN CORPUSCULAR HEMOGLOBIN 28.3 pg (27.0-31.0); MEAN CORPUSCULAR HGB CONC 31.7 g/dL (32.0-36.0); MEAN CORPUSCULAR VOLUME 89.3 fL (81.0-99.0); MEAN PLATELET VOLUME 9.3 fL (7.9-10.8); MONOCYTES # (AUTO) 0.9 10^3/uL (0.0-1.0); MONOCYTES % (AUTO) 8.1 %; NEUTROPHILS # (AUTO) 6.4 10^3/uL (1.5-6.6); NEUTROPHILS % (AUTO) 56.7 %; PLT - PLATELET COUNT 384 10^3/uL (130-450); RED BLOOD COUNT 4.49 10^6/uL (4.20-5.40); RED CELL DISTRIBUTION WIDTH 13.3 % (12.0-15.0); WHITE BLOOD COUNT 11.3 x10^3/uL (4.8-10.8)
[2024-05-31] MEDS: KETOROLAC 30 MG/ML VIAL IM STA (21:47)
[2024-05-31] MEDS: COLCHICINE 0.6 MG TABLET PO STA (21:47)
[2024-05-31 21:48] LABS: ALBUMIN 4.4 g/dL (3.2-5.5); ALBUMIN/GLOBULIN RATIO 1.3 (1.0-2.2); BILIRUBIN,TOTAL 0.4 mg/dL (0.2-1.0); CALCIUM 9.1 mg/dL (8.5-10.3); CREATININE 0.6 mg/dL (0.6-1.3); MAGNESIUM 1.8 mg/dL (1.7-2.3); POTASSIUM 3.5 mmol/L (3.5-4.5); TOTAL PROTEIN 7.8 g/dL (6.4-8.9)
[2024-05-31 21:59] VITALS: BP 142/70; O2SAT 96
[2024-06-01] MEDS ORDERED: COLCHICINE 0.6 MG TABLET PO SCH (09:00)
== END 2024-05-31 21:55 | disposition home or self-care (01) ==
LOC: ED 18:45
DX: M10.9 Gout, unspecified (principal); I10 Essential (primary) hypertension
CPT/HCPCS: 36415; 73630; 80053; 83690; 83735; 84550; 85025; 93971; 96372; 99284; A9270

== ENCOUNTER 2024-06-06 07:57 | Outpatient (CLI) | payer MEDICARE, OTHER ==
[2024-06-06 12:57] LABS: BASOPHILS # (AUTO) 0.1 10^3/uL (0.0-0.1); EOSINOPHILS # (AUTO) 0.4 10^3/uL (0.0-0.7); EOSINOPHILS % (AUTO) 4.7 %; HCT - HEMATOCRIT 40.2 % (37.0-47.0); HGB - HEMOGLOBIN 12.7 g/dL (12.0-16.0); LYMPHOCYTES # (AUTO) 2.9 10^3/uL (1.5-3.5); LYMPHOCYTES % (AUTO) 34.9 %; MEAN CORPUSCULAR HEMOGLOBIN 28.5 pg (27.0-31.0); MEAN CORPUSCULAR HGB CONC 31.6 g/dL (32.0-36.0); MEAN CORPUSCULAR VOLUME 90.1 fL (81.0-99.0); MEAN PLATELET VOLUME 9.9 fL (7.9-10.8); MONOCYTES # (AUTO) 0.7 10^3/uL (0.0-1.0); MONOCYTES % (AUTO) 8.8 %; NEUTROPHILS # (AUTO) 4.2 10^3/uL (1.5-6.6); NEUTROPHILS % (AUTO) 50.1 %; PLT - PLATELET COUNT 419 10^3/uL (130-450); RED BLOOD COUNT 4.46 10^6/uL (4.20-5.40); RED CELL DISTRIBUTION WIDTH 13.5 % (12.0-15.0); WHITE BLOOD COUNT 8.3 x10^3/uL (4.8-10.8)
== END 2024-06-06 07:58 | disposition home or self-care (01) ==
LOC: LAB.N 07:57
PROVIDERS: ATTEND Nurse Practitioner Family
DX: D72.829 Elevated white blood cell count, unspecified (principal)
CPT/HCPCS: 36415; 85025